=== PATIENT | male | born 1980 | race Caucasian/White ===

== ENCOUNTER 2022-08-17 21:11 | Emergency (ER) | payer BC ==
[2022-08-17] MEDS ORDERED: Silver Sulfadiazine 1% Crm 400 GM Jar TOP ONE (21:31)
[2022-08-17] MEDS ORDERED: Diphtheria,Pertussis(Acell),Tetanus Vaccine 0.5 ML Syringe IM ONE (21:32)
== END 2022-08-17 22:20 | disposition home or self-care (01) ==
LOC: KA.ED 21:11
DX: T21.25XA Burn of second degree of buttock, initial encounter (principal); T24.291A Burn of second degree of multiple sites of right lower limb, except ankle and foot, initial encounter; X08.8XXA Exposure to other specified smoke, fire and flames, initial encounter; Y93.41 Activity, dancing; Z23 Encounter for immunization
CPT/HCPCS: 90471; 90715; 99283; 99283-25

== ENCOUNTER 2022-08-25 20:25 | Emergency (ER) | payer BC ==
[2022-08-25] MEDS: Acetaminophen/HYDROcodone 325-10 MG Tab PO ONE (20:37)
[2022-08-25] MEDS: Acetaminophen/HYDROcodone 325-10 MG Tab ONE (21:05)
[2022-08-25] MEDS: Bacitracin Oint 30 GM Tube TOP ONE (21:05)
[2022-08-25] MEDS: oxyCODONE 5 MG Tab PO ONE ×2 (21:10→21:50)
[2022-08-25 21:32] VITALS: BP 168/100; PULSE 94
== END 2022-08-25 21:55 | disposition home or self-care (01) ==
LOC: KA.ED 20:25
DX: T21.24XA Burn of second degree of lower back, initial encounter (principal); Z72.0 Tobacco use; X08.8XXA Exposure to other specified smoke, fire and flames, initial encounter
CPT/HCPCS: 16020; 99283; A9270-GY